=== PATIENT | male | born 1985 | race Two or more races ===

== ENCOUNTER 2022-08-28 03:03 | Emergency (ER) | payer MEDICAID ==
[~2022-08-28] VITALS: Ht 177.8 cm; Wt 90.7 kg
[2022-08-28] MEDS ORDERED: EPINEPHRINE (1:1000) 1 MG/ML AMPUL ONE (03:06)
--- NOTE | 2022-08-28 03:10 | NUR ---
PATIENT BIBSELF C/O ALLERGIC REATION / SOB. PATIENT A/O, RR LABORED. PATIENT TAKEN TO ER BED 06, CONNECTED TO HEAD CD REACTOR OPERATOR AND POX. WILL CONTINUE TO MONITOR.
[2022-08-28] MEDS ORDERED: FAMOTIDINE/PF INJ 20 MG/2 ML VIAL IV ONE ×2 (03:26→03:30)
[2022-08-28] MEDS ORDERED: diphenhydrAMINE HCL 50 MG/ML VIAL ONE (03:26)
[2022-08-28] MEDS ORDERED: EPINEPHRINE (1:1000) 1 MG/ML AMPUL SUBCUT ONE (03:30)
[2022-08-28] MEDS ORDERED: diphenhydrAMINE HCL 50 MG/ML VIAL IV ONE (03:30)
--- NOTE | 2022-08-28 03:54 | NUR ---
ANGLE SHEAR OPERATOR : RAÚL
[2022-08-28] MEDS ORDERED: ACETAMINOPHEN 325 MG TABLET PO ONE (04:00)
[2022-08-28] MEDS ORDERED: IV NS 0.9% 250 ML IV ONE (04:00)
[2022-08-28 04:06] LABS: BASOPHILS % (AUTO) 0.4 % (0.0-2.0); EOSINOPHILS % (AUTO) 0.8 % (0.0-6.0); HEMATOCRIT 43 % (39-51); HEMOGLOBIN 14.5 g/dL (13.5-17.5); LYMPHOCYTES # (AUTO) 1.6 K/uL (0.8-4.8); LYMPHOCYTES % (AUTO) 27.8 % (20.0-44.0); MEAN CORPUSCULAR HGB CONC 34 g/dl (31.0-36.0); MEAN CORPUSCULAR VOLUME 88 fL (80-96); MONOCYTES # (AUTO) 0.7 K/uL (0.1-1.30); MONOCYTES % (AUTO) 12.8 % (2.0-12.0); NEUTROPHILS # (AUTO) 3.4 K/uL (1.8-8.9); NEUTROPHILS % (AUTO) 58.2 % (43.0-81.0); PLATELET COUNT (AUTO) 226 K/uL (150-450); RED BLOOD CELL COUNT(AUTO) 4.81 MIL/uL (4.5-6.0); WHITE BLOOD COUNT (AUTO) 5.8 K/uL (4.3-11.0)
--- NOTE | 2022-08-28 04:10 | NUR ---
Patient does not wish to proceed with medical care recommended by Dr. Belcher. Patient given information related to possible complications, up to and including , which could occur as a result of leaving the hospital at this time. Patient verbalizes understanding of risks involved due to leaving against medical advice. Patient has signed AMA form. Pt ambulatory with a steady gait. IV removed. Catheter intact and site benign. Pressure and 4x4 applied to site. No bleeding noted.
[2022-08-28 04:15] LABS: CALCIUM, SERUM 8.6 mg/dL (8.5-10.1); CREATININE 1.1 mg/dL (0.6-1.3); POTASSIUM 2.9 mmol/L (3.5-5.1)
[2022-08-28 05:39] VITALS: BP 134/71
== END 2022-08-28 05:39 | disposition left against medical advice (07) ==
LOC: ER 03:07
DX: T78.2XXA Anaphylactic shock, unspecified, initial encounter (principal); D47.09 Other mast cell neoplasms of uncertain behavior; Z88.8 Allergy status to other drugs, medicaments and biological substances; Z60.2 Problems related to living alone
CPT/HCPCS: 99291; 96374; 96361; 96375; 85025; 80048; 36415; 96372; J1200; J0171; J3490; J7050